=== PATIENT | female | born 1965 | race Caucasian/White ===

== ENCOUNTER → 2021-04-30 | Outpatient (CLI) | payer MEDICARE, OTHER ==
[~2021-04-30] MED LIST: BACTRIM DS TAB1 EACH PO; BUSPIRONE HCL15 MG PO; CLARITIN10 MG PO; CYMBALTA60 MG PO; FLONASE 0.05% N16 GM; GABAPENTIN600 MG PO; GLUCOPHAGE XR500 MG PO; IBUPROFEN600 MG PO; LEVOFLOXACIN500 MG PO; LIPITOR TAB 2020 MG PO; MEDROL4 MG PO; TOUJEO MAX300 UNIT/1 SQ; VICTOZA 3-0.6 MG/0.1 SQ; VISTARIL 25 MG25 MG PO; ZANTAC150 MG PO; [UNRECOGNIZED DRUG - OTHER]
== END ==
LOC: KOH-I 11:54
DX: J06.9 Acute upper respiratory infection, unspecified (principal)
CPT/HCPCS: 71046